=== PATIENT | male | born 1970 | race Two or more races ===

== ENCOUNTER → 2024-09-13 | Outpatient (CLI) | payer BC, SELFPAY ==
--- NOTE | 2024-09-13 | XR_ITS ---
Examination: CT right shoulder, without contrast. 2-D sagittal reconstructions. 2-D coronal reconstructions. 3-D reconstructions. Date and time of exam:September 13, 2024 0925 hours INDICATIONS: Work injury to the shoulders 3 years ago with persistent shoulder pain, worse the last 3 weeks CTDI: vol (mGy):14.8 DLP: (mGycm):387 Technique: Multiple 1.25 mm axial sections of the right shoulder without intravenous contrast have been obtained. 2-D sagittal and coronal reconstructions have been obtained. 3-D reconstructions have been obtained. Low dose protocols were performed. One or more of the following dose reduction techniques were used; automated exposure control, adjustment of the mA and/or KV according to patient size, use of iterative reconstruction technique. Findings: Mild narrowing glenohumeral joint No shoulder dislocation Humeral head including greater and lesser tuberosities and visualized humeral shaft intact No AC joint separation Mild osteoarthritis acromioclavicular joint No calcific tendinitis IMPRESSION: Mild narrowing glenohumeral joint No shoulder fracture or dislocation Negative for calcific tendinitis If pain persists, consider MRI shoulder without contrast follow-up, as clinically warranted
== END | disposition home or self-care (01) ==
PROVIDERS: PCP Nurse Practitioner Family; Referring Provider Nurse Practitioner Family; Visit Provider Nurse Practitioner Family
DX: M25.811 Other specified joint disorders, right shoulder (principal)
CPT/HCPCS: 73200

== ENCOUNTER → 2024-12-29 | Outpatient (CLI) | payer BC, SELFPAY ==
--- NOTE | 2024-12-29 10:30 | XR_ITS ---
MRI shoulder, right, without contrast. Date and time: December 29, 2024 1112 hours INDICATIONS: Right shoulder pain joint clicking numbness 5 months Technique: Multiple axial, sagittal and coronal sections of the shoulder have been obtained. Siemens high-resolution 1.5 [place] MRI scanner is utilized. Axial fat-suppressed sections, TR 2350, TE 18 T2-weighted coronal fat-saturated images, TR 3500, TE 7100 T1-weighted coronal images, TR 500, TE 15 T2-weighted sagittal fat-saturated images, TR 3500, TE 57 T1-weighted sagittal sections, TR 504, TE 13. Findings: Supraspinatus tendon insertion is abnormal, 6 mm full-thickness tear. Infraspinatus tendon insertion is intact. Subscapularis insertion is intact. Subscapularis bursa is not seen. Long head of the biceps is in the bicipital groove. No definite tear of the biceps superior labral anchor is seen. Retraction of the musculotendinous junction of the rotator cuff is mild. Tendinosis pattern is moderate. Distance between the acromium and humeral head is 6 mm Atrophy of the supraspinatus muscle is moderate. Atrophy of the infraspinatus muscle is mild. Sagittal sections demonstrate a horizontal acromion. Acromioclavicular joint demonstrates mild osteoarthritis . Osacromiale is not identified. Small tears of the anterior labral margin. Bony glenoid fossa on the sagittal sections does not demonstrate osseous defect. Occult fracture or area of avascular necrosis is not seen. Acromioclavicular joint separation is not visible. Defect in the posterolateral margin of the humeral head is not seen Impression: 6 mm full-thickness tear supraspinatous tendon insertion Small anterior labral tears
== END | disposition home or self-care (01) ==
LOC: SMRI 10:08
PROVIDERS: PCP Nurse Practitioner Family; Referring Provider Nurse Practitioner Family; Visit Provider Nurse Practitioner Family
DX: M75.101 Unspecified rotator cuff tear or rupture of right shoulder, not specified as traumatic (principal); S43.431A Superior glenoid labrum lesion of right shoulder, initial encounter; X58.XXXA Exposure to other specified factors, initial encounter
CPT/HCPCS: 73221

== ENCOUNTER → 2025-05-11 | Outpatient (CLI) | payer BC, SELFPAY ==
--- NOTE | 2025-05-11 15:44 | XR_ITS ---
EXAMINATION: Testicular sonography complete TECHNIQUE: Grayscale sonographic images testes, assessment arterial inflow and venous outflow Doppler spectral analysis color flow analysis Date and time: May 11, 2025, 1557 hours INDICATIONS: Onset bilateral testicular pain beginning 2 days ago FINDINGS: Right testis 3.7 cm epididymis 13 mm Arterial flow of the testicle. No testicular mass Left testis 4.8 cm epididymis 2.2 cm Arterial flow of the testicle. No testicular mass Mild left hydrocele IMPRESSION: No testicular torsion or testicular mass Mildly prominent left epididymis, consider left epididymitis
== END | disposition home or self-care (01) ==
LOC: CDIM 15:35
PROVIDERS: Referring Provider Nurse Practitioner Family; Visit Provider Nurse Practitioner Family
DX: N50.9 Disorder of male genital organs, unspecified (principal)
CPT/HCPCS: 76870